=== PATIENT | female | born 1940 | race Caucasian/White ===

== ENCOUNTER → 2019-05-11 | Outpatient (CLI) | payer MEDICARE ==
[~2019-05-11] MED LIST: AEC81 PO; CALC-322 PO; CHOL400C9 PO; CYAN50TA2 PO; DILT60CA PO; FLUO90CA4 PO; GABA-531 PO; LEVO50TA4 PO; NIAC50TA4 PO; PRAV40TA3 PO; PREN-196 PO
[2019-05-11 17:01] LABS: ALBUMIN 3.8 g/dL (3.5-5.0); BILIRUBIN,TOTAL 0.3 mg/dL (0.2-1.0); CREATININE 1.1 mg/dL (0.5-1.5); POTASSIUM 4.4 mmol/L (3.5-5.1); TOTAL PROTEIN, SERUM 6.7 g/dL (6.0-8.3)
== END | disposition home or self-care (01) ==
LOC: LAB 15:26
PROVIDERS: ATTEND Internal Medicine
DX: M81.0 Age-related osteoporosis without current pathological fracture (principal)
CPT/HCPCS: 36415; 80053; 82306

== ENCOUNTER 2022-05-06 18:02 | Emergency (ER) | payer MEDICARE ==
[2022-05-06] MEDS ORDERED: MORPHINE 4 MG SYG ONE (19:37)
[2022-05-06] MEDS ORDERED: TRAMADOL HCL 50 MG TABLET ONE (19:42)
[2022-05-06] MEDS ORDERED: TRAMADOL HCL 50 MG TABLET PO ONE (20:00)
[2022-05-06] MEDS ORDERED: MORPHINE 4 MG SYG IM ONE (20:00)
[2022-05-06 21:00] VITALS: BP 124/72
== END 2022-05-06 21:06 | disposition home or self-care (01) ==
LOC: EDH 18:02
DX: M25.551 Pain in right hip (principal); R07.81 Pleurodynia; I10 Essential (primary) hypertension; E03.9 Hypothyroidism, unspecified; Z79.82 Long term (current) use of aspirin; Z79.899 Other long term (current) drug therapy; W01.0XXA Fall on same level from slipping, tripping and stumbling without subsequent striking against object, initial encounter; Y93.89 Activity, other specified; Y92.89 Other specified places as the place of occurrence of the external cause; Y99.8 Other external cause status
CPT/HCPCS: 99284; 70450; 71045; 73502; 72100; 72072; 72125; J2270

== ENCOUNTER → 2024-09-29 | Outpatient (CLI) | payer MEDICARE ==
--- NOTE | 2024-10-04 08:11 | HMCSR ---
APPROVED REPORT Bilateral Lower Extremity Venous Study for DVT., Venous Competence. Indications i87.1, i87.2 Vein Imaging CFV (R): Normal flow, augmentation and compression. No evidence of DVT. 11.4mm 1008ms of reflux. SFJ (R): Normal flow, augmentation and compression. No evidence of DVT. FEM (R): Normal flow, augmentation and compression. No evidence of DVT. POP (R): Normal flow, augmentation and compression. No evidence of DVT. DFV (R): Normal flow, augmentation and compression. No evidence of DVT. PTV (R): Normal flow, augmentation and compression. No evidence of DVT. Peroneals (R): Normal flow, augmentation and compression. No evidence of DVT. CFV (L): Normal flow, augmentation and compression. No evidence of DVT. 12.5mm 1042ms of reflux. SFJ (L): Normal flow, augmentation and compression. No evidence of DVT. FEM (L): Normal flow, augmentation and compression. No evidence of DVT. POP (L): Normal flow, augmentation and compression. No evidence of DVT. DFV (L): Normal flow, augmentation and compression. No evidence of DVT. PTV (L): Normal flow, augmentation and compression. No evidence of DVT. Peroneals (L): Normal flow, augmentation and compression. No evidence of DVT. Technologist Impression Deep veins of the bilateral lower extremities appear patent and compressible without thrombus. Deep venous reflux noted in the RCFV and LCFV. Superficial venous insufficiency noted in the RGSV junction and LGSV junction. RGSV junction 9.6mm 667ms thigh 4.1mm 400ms knee 3.2mm 483ms calf 1.9mm 0.0ms RSSV prox 2.6mm 0.0ms mid 1.6mm 0.0ms LGSV junction 7.3mm 508ms thigh 3.9mm 0.0ms knee 4.9mm 0.0ms calf 1.3mm 0.0ms LSSV prox 3.0mm 0.0ms mid 2.0mm 0.0ms Conclusion Deep veins of the bilateral lower extremities appear patent and compressible without thrombus. Deep venous reflux noted in the RCFV and LCFV. Superficial venous insufficiency noted in the RGSV junction and LGSV junction. Conclusion Deep veins of the bilateral lower extremities appear patent and compressible without thrombus. Deep venous reflux noted in the RCFV and LCFV. Superficial venous insufficiency noted in the RGSV junction and LGSV junction.
== END | disposition home or self-care (01) ==
LOC: SHCH 13:34
PROVIDERS: ATTEND Internal Medicine Cardiovascular Disease
DX: I87.2 Venous insufficiency (chronic) (peripheral) (principal)
CPT/HCPCS: 93970